=== PATIENT | female | born 1965 | race Caucasian/White ===

== ENCOUNTER 2017-04-08 18:43 | Emergency (ER) | payer OTHER ==
[2017-04-08] MEDS ORDERED: diphenhydrAMINE 50 MG/ML 1 ML VIAL IVP STA (19:11)
[2017-04-08] MEDS ORDERED: METOCLOPRAMIDE 5 MG/ML 2 ML VIAL IVP STA (19:11)
[2017-04-08] MEDS ORDERED: KETOROLAC 30 MG/ML 1 ML VIAL IVP STA (19:11)
[2017-04-08] MEDS ORDERED: SODIUM CHLORIDE 0.9% 1,000 ML IV STA (19:15)
--- NOTE | 2017-04-08 19:25 | ED ---
Headache HPI - General Chief Complaint: Headache Stated Complaint: Headache Time Seen by Provider: 04/08/17 18:58 Source: RN notes reviewed Mode of arrival: ambulatory Limitations: no limitations - History of Present Illness Initial Comments: This is a 51-year-old female presents to the emergency department with chief complaint of headache. Patient states that her headache began this morning. She did not take any medication until 3 PM this afternoon. She states that she took a couple of Aleve. Patient states that she has a thyroid biopsy scheduled for tomorrow and was not supposed take any medications 3 days prior. Patient states that she has headaches a couple times a month and is able to treat them with ibuprofen and caffeine. She states this headache doesn't feel any different than her normal. Patient states that her headache is in the frontal location and surrounding her eyes. She admits to associated nausea and one episode of vomiting on her way to the emergency department. She also states that she feels weak. She states the headache is made worse with light and loud noises. She states she feels better when lying down in a dark room. Patient has no other complaints. Denies fever, chills, chest pain, shortness of breath, abdominal pain, constipation or diarrhea, dysuria or hematuria, numbness or tingling, or vision changes. - Related Data Home Medications Medication Instructions Recorded Confirmed Biotin 5 mg PO DAILY 04/08/17 04/08/17 Cholecalciferol [Vitamin D3] 1,000 unit PO DAILY 04/08/17 04/08/17 L.acidoph,Paracasei, B.lactis 1 cap PO DAILY 04/08/17 04/08/17 [Probiotic] Naproxen Sodium [Aleve] 440 mg PO DAILY PRN 04/08/17 04/08/17 Venlafaxine HCl [Effexor XR] 75 mg PO DAILY 04/08/17 04/08/17 Allergies Allergy/AdvReac Type Severity Reaction Status Date / Time No Known Allergies Allergy Verified 04/08/17 18:58 Review of Systems ROS Statement: Those systems with pertinent positive or pertinent negative responses have been documented in the HPI. ROS Other: All systems not noted in ROS Statement are negative. Past Medical History Past Medical History: No Reported History History of Any Multi-Drug Resistant Organisms: None Reported Additional Past Surgical History / Comment(s): fibroid removed from cervix Past Psychological History: Depression Smoking Status: Never smoker Past Alcohol Use History: Occasional Past Drug Use History: None Reported General Exam - General Exam Comments Initial Comments: General: Awake and alert, well-developed; in no apparent distress. Lying on her left side on the ED stretcher in dark exam room. is at bedside. HEENT: Head atraumatic, normocephalic. Pupils are equal, round and reactive to light. Extraocular movements intact. Oropharynx moist without erythema or exudate. Neck: Supple. Normal ROM. Cardiovascular: Regular rate and rhythm. No murmurs, rubs or gallops. Chest symmetrical. Respiratory: Lungs clear to auscultation bilaterally. No wheezes, rales or rhonchi. Normal respiratory effort with no use of accessory muscles. Abdomen: Soft, non-tender, non-distended. No rigidity, rebound or guarding. Normal bowel sounds in all 4 quadrants. Musculoskeletal: Normal ROM, no tenderness bilateral upper and lower extremities. Skin: [place], warm and dry without rashes or lesions. Neurological: Alert and oriented x3. CN II-XII grossly intact. Speech is fluent and answers are appropriate. No focal neuro deficits. Psychiatric: Normal mood and affect. No overt signs of depression or anxiety noted. Limitations: no limitations Course Vital Signs 04/08/17 18:44 Temperature 97.1 F L Pulse Rate 69 Respiratory 16 Rate Blood Pressure 159/83 O2 Sat by Pulse 99 Oximetry Medical Decision Making - Medical Decision Making This is a 51-year-old female who presents to the emergency department for evaluation of headache. Patient developed a frontal headache early this morning and was hesitant to treat it because she has a scheduled thyroid biopsy tomorrow. Patient states that she has headaches a couple times a month and that this current headache does not feel any different from normal. She does admit to some associated nausea. In the emergency department, she was given IV fluids, antiemetics and pain medication. She states that she is feeling much better and no longer has a headache or feels nauseas. She states she is ready for discharge home. Patient is in no acute distress at this time. She will be discharged home. Patient is in agreement and voices understanding. All questions answered. Disposition Clinical Impression: Headache Disposition: HOME SELF-CARE Condition: Good Instructions: Acute Headache (ED) Additional Instructions: Please follow up with primary care provider within 1-2 days. Return to emergency department if symptoms should worsen or any concerns arise. Referrals: Nicolás Wall DO [Primary Care Provider] - 1-2 days Time of Disposition: 20:21
[2017-04-08 20:39] VITALS: BP 115/62; PULSE 61; RESP 18; TEMP 96.4
== END 2017-04-08 20:38 | disposition home or self-care (01) ==
LOC: EC 18:43
DX: Z79.899 Other long term (current) drug therapy (principal); F32.9 Major depressive disorder, single episode, unspecified
CPT/HCPCS: 99283; 96374; 96375 ×2; 96361; J1200; J2765; J1885